=== PATIENT | male | born 1975 | race Caucasian/White ===

== ENCOUNTER → 2022-03-13 | Outpatient (CLI) | payer BC ==
--- NOTE | 2022-03-13 11:26 | US ---
EXAMINATION TYPE: US abdomen complete DATE OF EXAM: 03/13/2022 COMPARISON: NONE CLINICAL HISTORY: R74.8 ABN LEVELS OF OTHER SERUM ENZYMES. Elevated liver enzymes EXAM MEASUREMENTS: Liver Length: 17.3 cm Gallbladder Wall: 0.14 cm CBD: 0.38 cm Spleen: 11.7 cm Right Kidney: 12.2 x 5.7 x 5.2 cm Left Kidney: 12.1 x 4.8 x 6.3 cm Pancreas: wnl Liver: Increased attenuation, decreased visualization of vessels suggestive of fatty infiltrate Gallbladder: wnl Evidence for sonographic Cronin's sign: No CBD: wnl Spleen: wnl Right Kidney: Hypoechoic area see in sup/mid pole measuring 1.1 x 1.0 x 1.0 cm. Left Kidney: wnl Upper IVC: wnl Abd Aorta: wnl The liver is homogenous with increased echotexture. The intrahepatic portion of the IVC and proximal abdominal aorta are within normal limits. There is no evidence of cholelithiasis. Common bile duct is unremarkable. The visualized portions of the pancreas are homogenous. The spleen is unremarkabl e. Kidneys are symmetric and free of hydronephrosis. No suspicious renal lesions are seen. IMPRESSION: 1. Hepatic steatosis. 2. Suspected right renal cyst
== END | disposition home or self-care (01) ==
LOC: RADUSWWP 08:16
PROVIDERS: ATTEND Internal Medicine Gastroenterology
DX: K76.0 Fatty (change of) liver, not elsewhere classified (principal); N28.1 Cyst of kidney, acquired
CPT/HCPCS: 76700